=== PATIENT | female | born 1965 | race African-American/Black ===

== ENCOUNTER 2018-01-27 19:44 | Emergency (ER) | payer OTHER ==
[~2018-01-27] VITALS: Ht 175.3 cm; Wt 68.0 kg
[2018-01-27] MEDS ORDERED: Acetaminophen 500mg (ES) tab ORAL ONE (20:30)
--- NOTE | 2018-01-27 21:28 | Emergency Room Report ---
History of Present Illness General Chief Complaint: General Complaint Source: Patient (Precious Adams) Present Illness HPI 52-year-old female presents emergency department complaining of 8 out of 10 in severity generalized body aches the most appreciably abdominal pain 2 days. Patient denies fevers or chills she reports some nausea denies vomiting denies constipation or diarrhea she denies blood in the stool or black tarry stools. Patient denies trauma or fall. Denies numbness tingling or loss of sensation or gross motor movements of the extremities, incontinence of bowel or bladder. Denies CP, Palpitations, LOC, AMS, dizziness, Changes in Vision, weakness or a sudden severe headache. Patient denies psychiatric history despite listed psychiatric medication allergies. Patient denies SI, HI, auditory or visual hallucinations. Patient denies drug use. (Precious Adams) Allergies: Coded Allergies: QUETIAPINE (Verified Allergy, Unknown, 01/27/18) TRAZODONE (Verified Allergy, Unknown, 01/27/18) Patient History Past Medical History: see triage record Past Surgical History: none Pertinent Family History: none Last Menstrual Period: n/a Now: No Immunizations: UTD Reviewed Nursing Documentation: PMH: Agreed; PSxH: Agreed (Precious Adams) Nursing Documentation-PMH Past Medical History: No Stated History (Precious Adams) Review of Systems All Other Systems: negative except mentioned in HPI (Precious Adams) Physical Exam Vital Signs Date Time Temp Pulse Resp B/P (MAP) Pulse Ox O2 Delivery O2 Flow Rate FiO2 01/27/18 19:54 97.6 82 16 138/92 99 Room Air 97.5 Sp02 EP Interpretation: reviewed, normal General Appearance: no apparent distress, alert, GCS 15, non-toxic Head: normocephalic, atraumatic Eyes: bilateral eye normal inspection, bilateral eye PERRL ENT: hearing grossly normal, normal voice Neck: full range of motion Respiratory: lungs clear, normal breath sounds, no wheezing, speaking full sentences Cardiovascular #1: regular rate, rhythm Gastrointestinal: normal bowel sounds, non tender, soft Genitourinary: normal inspection, no CVA tenderness Musculoskeletal: back normal, gait/station normal, normal range of motion, non- tender Neurologic: alert, oriented x3, responsive, motor strength/tone normal, sensory intact, normal gait, speech normal, grossly normal Psychiatric: judgement/insight normal Skin: normal color, no rash, warm/dry, well hydrated (Precious Adams) Medical Decision Making PA Attestation Dr. Sánchez is my supervising Physician whom patient management has been discussed with. (Precious Adams) Diagnostic Impression: Primary Impression: Polysubstance abuse ER Course 52-year-old female presents emergency department complaining of 8 out of 10 in severity generalized body aches the most appreciably abdominal pain 2 days. Patient denies fevers or chills she reports some nausea denies vomiting denies constipation or diarrhea she denies blood in the stool or black tarry stools. Patient denies trauma or fall. Denies numbness tingling or loss of sensation or gross motor movements of the extremities, incontinence of bowel or bladder. Denies CP, Palpitations, LOC, AMS, dizziness, Changes in Vision, weakness or a sudden severe headache. Patient denies psychiatric history despite listed psychiatric medication allergies. Patient denies SI, HI, auditory or visual hallucinations. Patient denies drug use. Ddx considered but are not limited to UTI, muscle spasms, drug use, psychiatric symptom exacerbation. Vital signs: are WNL, pt. is afebrile H&PE are most consistent with nontoxic patient in no acute distress abdominal exam is benign I do not suspect acute determine with this patient's current presentation. ORDERS: -UA: Pending - UDS: Pending ED INTERVENTIONS: -Tylenol PO DISCHARGE: At this time pt. is signed out to Dr. Weinstein awaiting lab results and final disposition. (Precious Adams) ER Course Patient signout to me. She presents with chief complaint of body pain. She appeared to be very comfortable here. She said she is want to go to sleep. She had to be encouraged to give a urine sample. Urine drug screen positive for multiple drugs. No evidence of infection. No evidence of an acute abdomen. We'll discharge home. No criteria for 5150. (ISAURA WEINSTEIN M.D.) Last Vital Signs Date Time Temp Pulse Resp B/P (MAP) Pulse Ox O2 Delivery O2 Flow Rate FiO2 01/27/18 19:54 97.6 82 16 138/92 99 Room Air 97.5 (Precious Adams) Status: improved (ISAURA WEINSTEIN M.D.) Disposition: HOME, SELF-CARE Condition: Stable Signed Out To: Dr. Weinstein (Precious Adams) Additional Instructions: Stop using drugs. Follow-up with rehabilitation. Follow-up your doctor in 7 days. Return if worse. Precious Adams Jan 27, 2018 21:28 ISAURA WEINSTEIN M.D. Jan 27, 2018 22:21
[2018-01-27 21:37] LABS: APPEARANCE,URINE CLEAR; BILIRUBIN, URINE NEGATIVE (NEGATIVE); GLUCOSE, URINE (UA) NEGATIVE (NEGATIVE); KETONES,URINE 1+ (NEGATIVE); LEUKOCYTE ESTERASE ,URINE 2+ (NEGATIVE); NITRITE,URINE NEGATIVE (NEGATIVE); PH,URINE 6 (4.5-8.0); PROTEIN,URINE 1+ (NEGATIVE); UROBILINOGEN,URINE 4 MG/DL (0.0-1.0)
[2018-01-27 21:38] LABS: COLOR,URINE YELLOW
[2018-01-27 21:57] VITALS: BP 138/92
[2018-01-27 22:40] VITALS: BP 138/92
== END 2018-01-27 22:40 | disposition home or self-care (01) ==
LOC: EDBD 19:44 → EMR 20:09
DX: F19.10 Other psychoactive substance abuse, uncomplicated (principal); Z88.6 Allergy status to analgesic agent
CPT/HCPCS: 80307; 81003; 99284

== ENCOUNTER 2018-01-28 01:34 | Emergency (ER) | payer OTHER ==
[~2018-01-28] VITALS: Ht 175.3 cm; Wt 68.0 kg
[2018-01-28 01:55] VITALS: BP 138/92
--- NOTE | 2018-01-28 02:25 | Emergency Room Report ---
History of Present Illness General Chief Complaint: Behavioral Complaint Source: Patient Present Illness HPI This is a 52-year-old female whom I saw earlier this evening. She came in initially with chief complaint of generalized body pain. Drug screen was positive for marijuana, cocaine, and amphetamine. Patient was discharged. She went to the nearby piece of place and later control inspector 911 telling them that she was suicidal. Police brought her in as a 5150 for danger to self another. Patient has no particular plan. Said she is hearing voices. Has been off of her psychiatric medication for over a year. She was incarcerated during that time and was recently released about a couple weeks ago. She has no particular plan. Allergies: Coded Allergies: QUETIAPINE (Verified Allergy, Unknown, 01/27/18) TRAZODONE (Verified Allergy, Unknown, 01/27/18) Patient History Past Medical History: see triage record, old chart reviewed, schizophrenia Past Surgical History: other Family History: none Social History: tobacco use, ETOH, drug use, single Now: No Immunizations: other Reviewed Nursing Documentation: PMH: Agreed; PSxH: Agreed Nursing Documentation-PMH Past Medical History: No History, Except For History Of Psychiatric Problem: Yes - Schizophrenia Review of Systems ENT: Denies: sore throat Cardiovascular: Denies: chest pain, palpitations Gastrointestinal/Abdominal: Denies: nausea, vomiting, diarrhea Musculoskeletal: Denies: back problems Skin: Denies: rash Neurological: Denies: CROOKS, seizures All Other Systems: negative except mentioned in HPI Physical Exam Vital Signs Date Time Temp Pulse Resp B/P (MAP) Pulse Ox O2 Delivery O2 Flow Rate FiO2 01/28/18 01:35 97.8 84 15 138/92 99 Room Air 97.9 vitals normal Sp02 EP Interpretation: reviewed, normal General Appearance: alert/responsive, no apparent distress, non-toxic Head: normocephalic, atraumatic Eyes: PERRL, EOMI ENT: oropharynx normal Neck: supple/symm/no masses Respiratory: effort normal, no rhonchi, no wheezing Cardiovascular: no murmur, gallop, rub Gastrointestinal: non-tender, no mass, non-distended, no rebound/guarding, normal bowel sounds Musculoskeletal: gait & station normal Neurologic: oriented x3, sensory intact, motor strength/tone normal Skin: no rash, normal palpation Medical Decision Making Diagnostic Impression: Primary Impression: Psychosis Qualified Codes: F23 - Brief psychotic disorder Additional Impressions: Suicidal ideation Polysubstance abuse ER Course Patient presents with psychosis and suicidal mediation. I suspect this is probably malingering she has a place to stay. She is currently on a hold. We' ll check labs to make sure she is is medically stable. Afterward she will be clear for psychiatric evaluation. Patient slept in the night without any problem. Labs unremarkable. Drug screen positive for marijuana, cocaine, and methamphetamine. Patient is medically clear for psychiatric evaluation. Lab Results Impression labs normal Last Vital Signs Date Time Temp Pulse Resp B/P (MAP) Pulse Ox O2 Delivery O2 Flow Rate FiO2 01/28/18 01:35 97.8 84 15 138/92 99 Room Air 97.9 Status: improved Disposition: XFER TO PSYCH HOSP/UNIT Condition: Stable Referrals: [facility],REFERRING (PCP) ISAURA FOSTER M.D. Jan 28, 2018 02:25
[2018-01-28 02:29] LABS: BASOPHILS % (AUTO) 0.9 % (0.0-2.0); EOSINOPHILS % (AUTO) 1.7 % (0.0-3.0); HEMATOCRIT 38.7 % (37.0-47.0); LYMPHOCYTES % (AUTO) 22.2 % (20.0-45.0); MEAN CORPUSCULAR VOLUME 97 FL (80-99); MONOCYTES % (AUTO) 8.1 % (1.0-10.0); NEUTROPHILS % (AUTO) 67.2 % (45.0-75.0); PLATELET COUNT 345 K/UL (150-450); RED BLOOD COUNT 4.01 M/UL (4.20-5.40)
[2018-01-28 02:45] LABS: ALANINE AMINOTRANSFERASE 58 U/L (12-78); ALBUMIN 3.5 G/DL (3.4-5.0); ALBUMIN/GLOBULIN RATIO 0.8 (1.0-2.7); ALKALINE PHOSPHATASE 83 U/L (46-116); ASPARTATE AMINO TRANSFERASE 36 U/L (15-37); BILIRUBIN,TOTAL 0.5 MG/DL (0.2-1.0); BLOOD UREA NITROGEN 12 mg/dL (7-18); CALCIUM 9.3 MG/DL (8.5-10.1); CARBON DIOXIDE 29 MMOL/L (21-32); CREATININE 0.9 MG/DL (0.55-1.30)
[2018-01-28 02:58] LABS: CHLORIDE 107 MMOL/L (98-107); POTASSIUM 3.7 MMOL/L (3.5-5.1); SODIUM 142 MMOL/L (136-145)
[2018-01-28 05:50] VITALS: BP 129/85
[2018-01-28 10:00] VITALS: BP 126/78
[2018-01-28 14:00] VITALS: BP 115/68
[2018-01-28 18:00] VITALS: BP 116/66
[2018-01-28 20:00] VITALS: BP 117/65
[2018-01-29 00:30] VITALS: BP 110/64
[2018-01-29 06:43] VITALS: BP 118/76
[2018-01-29 11:10] VITALS: BP 122/74
[2018-01-29 14:33] VITALS: BP 130/76
[2018-01-29 15:07] LABS: APPEARANCE,URINE CLEAR; BILIRUBIN, URINE NEGATIVE (NEGATIVE); COLOR,URINE PALE YELLOW; GLUCOSE, URINE (UA) NEGATIVE (NEGATIVE); KETONES,URINE NEGATIVE (NEGATIVE); LEUKOCYTE ESTERASE ,URINE 1+ (NEGATIVE); NITRITE,URINE NEGATIVE (NEGATIVE); PH,URINE 8 (4.5-8.0); PROTEIN,URINE NEGATIVE (NEGATIVE); UROBILINOGEN,URINE NORMAL MG/DL (0.0-1.0)
[2018-01-29 15:34] VITALS: BP 130/76
== END 2018-01-29 15:34 ==
LOC: EMR 02:03
DX: F29 Unspecified psychosis not due to a substance or known physiological condition (principal); R45.851 Suicidal ideations; F14.10 Cocaine abuse, uncomplicated; F12.10 Cannabis abuse, uncomplicated
CPT/HCPCS: 36415; 80053; 80307; 80329; 81003; 81025; 85025; 99284

== ENCOUNTER 2018-10-05 02:24 | Emergency (ER) | payer OTHER ==
[~2018-10-05] VITALS: Ht 175.3 cm; Wt 68.0 kg
[2018-10-05 02:40] VITALS: BP 136/62
--- NOTE | 2018-10-05 02:40 | NUR ---
ED Nurse Note: Patient BILLY RA 68 from [facility] c/o generalized pain for 1 week. BS 126 on scene AO4. NAD. VSS.
--- NOTE | 2018-10-05 03:00 | NUR ---
ED Nurse Note: Provided patient with sandwich and water.
[2018-10-05] MEDS ORDERED: AMOXICILLIN500 MG ORAL (03:08)
[2018-10-05] MEDS ORDERED: TYLENOL EXTRA500 MG ORAL (03:08)
[2018-10-05 03:15] VITALS: BP 136/62
[2018-10-05] MEDS ORDERED: Acetaminophen 500mg (ES) tab ORAL ONE (03:15)
--- NOTE | 2018-10-05 03:15 | NUR ---
Homeless Discharge: Patient is being discharged from medical care. Awake, alert and oriented x3. After care instructions, including referral to community resources were given. Patient verbalized understanding of After care instructions; at this time patient does not request medications, equipment or placement. Patient signed patient consent in the medical record for patient destination upon discharge. All medical devices such as IV and ID band were removed. Patient ambulated out with all personal belongings with steady gait.
--- NOTE | 2018-10-05 21:42 | Emergency Room Report ---
History of Present Illness General Chief Complaint: Pain Source: Patient Present Illness HPI 52-year-old female presents to ED for evaluation. Patient brought in by EMS complaining of bilateral leg pain and cough. States that she has pneumonia. States cough is productive with yellowish phlegm. Denies any recent fall or injury. Pain is 8 out of 10, throbbing, nonradiating. Patient states she is homeless and walks a lot. Denies any other injuries. No other aggravating relieving factors. Denies any other associated symptoms Allergies: Coded Allergies: IBUPROFEN (Verified Allergy, Unknown, 10/05/18) QUETIAPINE (Verified Allergy, Unknown, 01/27/18) TRAZODONE (Verified Allergy, Unknown, 01/27/18) Patient History Past Medical History: psych hx Past Surgical History: none Pertinent Family History: none Social History: Denies: smoking, alcohol use, drug use Last Menstrual Period: MARY Now: No Immunizations: UTD Reviewed Nursing Documentation: PMH: Agreed; PSxH: Agreed Nursing Documentation-PMH Past Medical History: No History, Except For Hx Cardiac Problems: No - edema Review of Systems All Other Systems: negative except mentioned in HPI Physical Exam Vital Signs Date Time Temp Pulse Resp B/P (MAP) Pulse Ox O2 Delivery O2 Flow Rate FiO2 10/05/18 02:31 98.8 89 14 136/62 98 Room Air Sp02 EP Interpretation: reviewed, normal General Appearance: no apparent distress, alert, GCS 15, non-toxic Head: normocephalic Eyes: bilateral eye normal inspection, bilateral eye PERRL ENT: normal ENT inspection Neck: normal inspection Respiratory: chest non-tender, lungs clear, normal breath sounds, speaking full sentences Cardiovascular #1: regular rate, rhythm, no edema Gastrointestinal: normal inspection Rectal: normal rectal tone Genitourinary: no CVA tenderness Musculoskeletal: normal inspection Neurologic: alert, oriented x3, responsive, motor strength/tone normal, sensory intact, speech normal Psychiatric: anxious Skin: normal inspection Lymphatic: normal inspection Medical Decision Making Diagnostic Impression: Primary Impression: Atypical pneumonia ER Course Hospital Course 52-year-old female presents ED complaining of leg pain, cough. Differential diagnoses include: URI, pharyngitis, otitis media, asthma Clinical course Patient placed on stretcher. After initial history, physical exam reveals a female in no acute distress. Bilateral TM unremarkable. No pharyngeal erythema. No tonsillar exudates. No lymphadenopathy. lungs clear. abdomen soft. given age and comorbidities concern for atypical pneumonia. given tylenol for pain We will discharge with antibiotics. I'll provide referrals. Homeless checklist repleted. Prison referrals provided Diagnosis - atypical pneumonia Stable and discharged alf with Rx amoxicillin, tylenol. Instructed to followup with PMD. Return to ED if symptoms recur or worsen Last Vital Signs Date Time Temp Pulse Resp B/P (MAP) Pulse Ox O2 Delivery O2 Flow Rate FiO2 10/05/18 03:15 98.8 106 14 136/62 98 Room Air Status: improved Disposition: HOME, SELF-CARE Condition: Stable Scripts Acetaminophen* (TYLENOL EXTRA STRENGTH*) 500 Mg Tablet 500 MG ORAL Q8H PRN for Prn Headache/Temp > 101, #30 TAB 0 Refills Prov: Edgar Yanes MD 10/05/18 Amoxicillin* (AMOXIL*) 500 Mg Capsule 500 MG ORAL THREE TIMES A DAY, #21 CAP Prov: Edgar Yanes MD 10/05/18 Referrals: NOT CHOSEN [facility]/,REFERRING H [facility] Patient Instructions: Community-Acquired Pneumonia, Adult, [id number] Edgar Yanes MD Oct 05, 2018 21:42
== END 2018-10-05 03:15 | disposition home or self-care (01) ==
LOC: EDBD 02:24 → EDUNIT# 02:24 → EMR 03:08
DX: J18.9 Pneumonia, unspecified organism (principal); M79.605 Pain in left leg; M79.604 Pain in right leg; Z88.6 Allergy status to analgesic agent; Z88.8 Allergy status to other drugs, medicaments and biological substances
CPT/HCPCS: 99282

== ENCOUNTER 2018-10-14 05:31 | Inpatient (IN) | payer OTHER ==
[2018-10-14] VITALS (12 sets, daily range): BP systolic 109–144; BP diastolic 70–92
[~2018-10-14] VITALS: Ht 175.3 cm; Wt 63.5 kg
[~2018-10-14 05:31] MED LIST: AMOXICILLIN500 MG ORAL; TYLENOL EXTRA500 MG ORAL
[2018-10-14] MEDS ORDERED: LATUDA20 MG PO (05:36)
--- NOTE | 2018-10-14 05:54 | Emergency Room Report ---
History of Present Illness General Chief Complaint: Upper Respiratory Illness Source: Patient, EMS Present Illness HPI Patient presents with shaking chills and a productive cough. She believes she has pneumonia. She was seen October 05 and diagnosed with atypical pneumonia. She was discharged to be treated as an outpatient. She was given prescription for amoxicillin but apparently this was not filled. She denies using an inhaler at this time. She is felt weak. There is no vomiting or diarrhea. She admits to drinking alcohol. She denies doing drugs recently. Patient is a previous psychiatric history. She denies taking medication at this time. She denies suicidal homicidal ideation. Allergies: Coded Allergies: IBUPROFEN (Verified Allergy, Unknown, 10/05/18) QUETIAPINE (Verified Allergy, Unknown, 01/27/18) TRAZODONE (Verified Allergy, Unknown, 01/27/18) Patient History Past Medical History: see triage record, psych hx Social History: Reports: smoking, alcohol use, drug use Social History Narrative patient is in a stable living place however her boyfriend just Reviewed Nursing Documentation: PMH: Agreed; PSxH: Agreed Nursing Documentation-PMH Past Medical History: No History, Except For Hx Cardiac Problems: No - edema History Of Psychiatric Problem: Yes - schizophrenia Review of Systems All Other Systems: negative except mentioned in HPI Physical Exam Vital Signs Date Time Temp Pulse Resp B/P (MAP) Pulse Ox O2 Delivery O2 Flow Rate FiO2 10/14/18 05:32 99.0 80 20 138/88 100 Room Air Sp02 EP Interpretation: reviewed, normal General Appearance: no apparent distress, GCS 15, thin, other - Weak and ill appearing Head: normocephalic Eyes: bilateral eye normal inspection, bilateral eye PERRL ENT: moist mucus membranes Neck: supple Respiratory: rales - Right base, wheezing, expiration Cardiovascular #1: regular rate, rhythm Cardiovascular #2: 2+ radial (R) Gastrointestinal: normal inspection, normal bowel sounds, non tender, no mass, non-distended, scaphoid Musculoskeletal: back normal, gait/station normal, normal range of motion Neurologic: alert, motor strength/tone normal, normal gait, oriented - X2 Psychiatric: no suicidal/homicidal ideation, anxious, other - See course Skin: normal inspection, warm/dry Medical Decision Making Medical: Alcohol Abuse, Other - pneumonia Behavioral: Schizophrenia Reaction to Intervention: Escalated Behavior Restraint ReassesAndre Riveraner, MD, have personally evaluated this patient. Laboratory tests have been reviewed and addressed accordingly. The patient is deemed to present a danger to themselves and/or others. This is based on the exam, history ( provided by patient) and observed or reported behavior. Attempts for non-invasive measures have been considered and/or attempted, however, have been futile. It is in the best interest of the nursing staff, the patient, and others involved in this patient's care that behavioral restraints be applied. Patient evaluation reveals the following: escalation and delusional with paranoid ideation. Diagnostic Impression: Primary Impression: Right lower lobe pneumonia Qualified Codes: J18.1 - Lobar pneumonia, unspecified organism Additional Impressions: Bronchospasm Alcohol abuse Psychosis Qualified Codes: F29 - Unspecified psychosis not due to a substance or known physiological condition Cocaine abuse ER Course Patient presents with chills and cough. I differential includes viral syndrome , pneumonia, COPD exacerbation amongst others. The patient will be evaluated with EKG, chest x-ray and labs including lactic acid. We may need to include blood cultures. Patient will be treated with breathing treatments and IV hydration and Solu-Medrol initially. CXR with infiltrate. BC and antibiotics ordered. Lactate elevated. Normal white count. Blood alcohol positive. Tox screen positive for cocaine and THC. Patient acutely decompensated. She was initially compliant with treatment but then started accusing staff of torturing her. She stated that we wanted stronger out of the emergency department. She was paranoid and refused treatment. She did not seem to comprehend the risk of her refusal. Uncertain as to what caused the change in her demeanor. Clearly patient unable to comprehend the risks of leaving the hospital as she is not in reality at this time. Initially she agreed to oral sedation. However she was paranoid and only agreed to take Benadryl. Patient started to address the emergency department in a state of agitation. She was not oriented. Security responded and the patient was placed in restraints and sedated. She has not received antibiotics prior to sedation. The workup and treatment continued after sedation was successful. Signed ou to Dr. Harper. Apparently called Dr. Kenney for admission. In addition I requested that he request psychiatric consultation from Dr. Garibay. Laboratory Tests Test 10/14/18 06:45 10/14/18 09:57 10/14/18 12:02 White Blood Count 7.9 K/UL (4.8-10.8) Red Blood Count 4.32 M/UL (4.20-5.40) Hemoglobin 12.9 G/DL (12.0-16.0) Hematocrit 40.8 % (37.0-47.0) Mean Corpuscular Volume 94 FL (80-99) Mean Corpuscular Hemoglobin 29.9 PG (27.0-31.0) Mean Corpuscular Hemoglobin Concent 31.6 G/DL (32.0-36.0) L Red Cell Distribution Width 13.4 % (11.6-14.8) Platelet Count 353 K/UL (150-450) Mean Platelet Volume 6.8 FL (6.5-10.1) Neutrophils (%) (Auto) 71.9 % (45.0-75.0) Lymphocytes (%) (Auto) 20.5 % (20.0-45.0) Monocytes (%) (Auto) 6.3 % (1.0-10.0) Eosinophils (%) (Auto) 0.4 % (0.0-3.0) Basophils (%) (Auto) 0.9 % (0.0-2.0) Prothrombin Time 10.3 SEC (9.30-11.50) Prothrombin Time INR 1.0 (0.9-1.1) PTT 31 SEC (23-33) Sodium Level 142 MMOL/L (136-145) Potassium Level 3.6 MMOL/L (3.5-5.1) Chloride Level 104 MMOL/L (98-107) Carbon Dioxide Level 29 MMOL/L (21-32) Anion Gap 9 mmol/L (5-15) Blood Urea Nitrogen 14 mg/dL (7-18) Creatinine 0.6 MG/DL (0.55-1.30) Estimate Glomerular Filtration Rate > 60 mL/min (>60) Glucose Level 67 MG/DL (74-106) L Lactic Acid Level 2.40 mmol/L (0.4-2.0) H Pending Calcium Level 9.2 MG/DL (8.5-10.1) Total Bilirubin 0.2 MG/DL (0.2-1.0) Aspartate Amino Transferase (AST) 20 U/L (15-37) Alanine Aminotransferase (ALT) 31 U/L (12-78) Alkaline Phosphatase 77 U/L (46-116) Total Creatine Kinase 194 U/L (26-308) Troponin I 0.000 ng/mL (0.000-0.056) Pro-B-Type Natriuretic Peptide 110 pg/mL (0-125) Total Protein 8.1 G/DL (6.4-8.2) Albumin 3.7 G/DL (3.4-5.0) Globulin 4.4 g/dL Albumin/Globulin Ratio 0.8 (1.0-2.7) L Serum Alcohol 86 mg/dL Urine Color Pale yellow Urine Appearance Clear Urine pH 5 (4.5-8.0) Urine Specific [place] Pool 1.015 (1.005-1.035) Urine Protein Negative (NEGATIVE) Urine Glucose (UA) Negative (NEGATIVE) Urine Ketones Negative (NEGATIVE) Urine Blood Negative (NEGATIVE) Urine Nitrite Negative (NEGATIVE) Urine Bilirubin Negative (NEGATIVE) Urine Urobilinogen Normal MG/DL (0.0-1.0) Urine Leukocyte Esterase Negative (NEGATIVE) Urine Opiates Screen Negative (NEGATIVE) Urine Barbiturates Screen Negative (NEGATIVE) Phencyclidine (PCP) Screen Negative (NEGATIVE) Urine Amphetamines Screen Negative (NEGATIVE) Urine Benzodiazepines Screen Negative (NEGATIVE) Urine Cocaine Screen Positive (NEGATIVE) H Urine Marijuana (THC) Screen Positive (NEGATIVE) H Microbiology Date/Time Source Procedure Growth Status 10/14/18 09:18 Nasal Nares Influenza Types A,B Antigen (SANTOS) - Final Complete EKG Diagnostic Results Rate: normal Rhythm: NSR ST Segments: no acute changes - Low-voltage Rhythm Strip Diag. Results EP Interpretation: yes Rhythm: NSR, no PVC's, no ectopy Chest X-Ray Diagnostic Results Chest X-Ray Diagnostic Results : Chest X-Ray Ordered: Yes # of Views/Limited/Complete: 1 View Indication: Other EP Interpretation: Yes Interpretation: no effusion, no pneumothorax, other - RML infilrate Impression: Other Electronically Signed by: Electronically signed by Andre Melendez MD Last Vital Signs Date Time Temp Pulse Resp B/P (MAP) Pulse Ox O2 Delivery O2 Flow Rate FiO2 10/14/18 10:52 98.7 92 23 114/68 100 Room Air Status: improved Disposition: ADMITTED INPATIENT Condition: Serious Andre Melendez MD Oct 14, 2018 05:54
[2018-10-14] MEDS ORDERED: Albuterol ud Inhalation HHN ONE (06:00)
[2018-10-14] MEDS ORDERED: Solu-MEDROL 125mg Inj IVP ONE (06:00)
[2018-10-14] MEDS ORDERED: Ipratropium 0.02% Inh Soln 2.5ml UD HHN ONE (06:00)
--- NOTE | 2018-10-14 06:00 | NUR ---
ED Nurse Note: RECIEVED PT ON CODY AWAKE, ALERT AND ORIENTED X 4, PT COMPLETING BREATHING TREATMENT, PT DENIES CP OR ANY PAIN, IV LINE STARTED AND LABS DRAWN AND SENT, PT ON CARDIAC MONITORING, PT IN BED RESTING QUIETLY, SHIFT REPORT GIVEN TO CATRINA LARSEN TO RESUME CARE.
[2018-10-14 07:10] LABS: BASOPHILS % (AUTO) 0.9 % (0.0-2.0); EOSINOPHILS % (AUTO) 0.4 % (0.0-3.0); HEMATOCRIT 40.8 % (37.0-47.0); HEMOGLOBIN 12.9 G/DL (12.0-16.0); LYMPHOCYTES % (AUTO) 20.5 % (20.0-45.0); MEAN CORPUSCULAR VOLUME 94 FL (80-99); MONOCYTES % (AUTO) 6.3 % (1.0-10.0); NEUTROPHILS % (AUTO) 71.9 % (45.0-75.0); PLATELET COUNT 353 K/UL (150-450); RED BLOOD COUNT 4.32 M/UL (4.20-5.40); RED CELL DISTRIBUTION WIDTH 13.4 % (11.6-14.8); WHITE BLOOD COUNT 7.9 K/UL (4.8-10.8)
--- NOTE | 2018-10-14 07:30 | NUR ---
ED Nurse Note: REPORT RECEIVED FROM CATRINA WHITEHEAD.
[2018-10-14 07:31] LABS: ALANINE AMINOTRANSFERASE 31 U/L (12-78); ALBUMIN 3.7 G/DL (3.4-5.0); ALBUMIN/GLOBULIN RATIO 0.8 (1.0-2.7); ALKALINE PHOSPHATASE 77 U/L (46-116); ANION GAP 9 mmol/L (5-15); ASPARTATE AMINO TRANSFERASE 20 U/L (15-37); BILIRUBIN,TOTAL 0.2 MG/DL (0.2-1.0); BLOOD UREA NITROGEN 14 mg/dL (7-18); CALCIUM 9.2 MG/DL (8.5-10.1); CARBON DIOXIDE 29 MMOL/L (21-32); CHLORIDE 104 MMOL/L (98-107); CREATINE KINASE 194 U/L (26-308); CREATININE 0.6 MG/DL (0.55-1.30); POTASSIUM 3.6 MMOL/L (3.5-5.1); SODIUM 142 MMOL/L (136-145)
[2018-10-14] MEDS ORDERED: Piperacillin/Tazobactam 3.375 GM in NS 110 ML IVPB ONE (07:45)
--- NOTE | 2018-10-14 07:50 | NUR ---
ED Nurse Note: PT CRYING AND SCREAMING "STOP TORTURING ME!" REPEATEDLY AND BEING RESISTIVE TO CARE. TWO OTHER RN'S AT BEDSIDE WITNESSING THAT NOTHING IS BEING DONE TO THE PT. DR. ANGUIANO MADE AWARE.
--- NOTE | 2018-10-14 07:51 | Diagnostic Imaging Report ---
EXAM: XR Chest, 1 View. CLINICAL HISTORY: COUGH TECHNIQUE: Frontal view of the chest. COMPARISON: No relevant prior studies available. FINDINGS: Lungs: Suspected airspace consolidation versus atelectasis in the right lung base. Lungs are otherwise well inflated and aerated. Pleural spaces: No pneumothorax. Heart: Mild cardiomegaly. Mediastinum: No mediastinal widening or shift. Bones: Unremarkable. No acute fracture. IMPRESSION: Atelectasis versus airspace consolidation secondary to pneumonia seen within the right lung base.
[2018-10-14] MEDS: LORazepam 1mg tab ORAL ONE ×2 (08:00→08:25)
--- NOTE | 2018-10-14 08:30 | NUR ---
ED Nurse Note: PT REFUSED THE ATIVAN AND THE HALDOL WHILE DR. ANGUIANO IS AT THE BEDSIDE
--- NOTE | 2018-10-14 08:35 | NUR ---
ED Nurse Note: DR. ANGUIANO AT BEDSIDE BUT PT STILL AGITATED AND COMBATIVE. PT CONFUSED AND COMBATIVE AND CONTINUING TO YELL AT STAFF. SECURITY CALLED FOR ASSISTANCE.
[2018-10-14] MEDS ORDERED: Haloperidol 5mg/ml Inj IM ONE (08:45)
[2018-10-14] MEDS ORDERED: LORazepam Inj 2mg/ml 1ml IM ONE (08:45)
--- NOTE | 2018-10-14 08:47 | NUR ---
ED Nurse Note: PT CONTINUES TO BE RESISTIVE TO CARE AND COMBATIVE TOWARDS STAFF. ORDER FOR BEHAVIORAL RESTRAINTS RECEIVED AND PLACED ON PT. PULSES, SENSATION, CIRCULATION, AND SKIN INTACT. IM MEDICATIONS ADMINISTERED PER DR. ANGUIANO ORDERS.
[2018-10-14 10:11] LABS: APPEARANCE,URINE CLEAR; BILIRUBIN, URINE NEGATIVE (NEGATIVE); COLOR,URINE PALE YELLOW; GLUCOSE, URINE (UA) NEGATIVE (NEGATIVE); KETONES,URINE NEGATIVE (NEGATIVE); LEUKOCYTE ESTERASE ,URINE NEGATIVE (NEGATIVE); NITRITE,URINE NEGATIVE (NEGATIVE); PH,URINE 5 (4.5-8.0); PROTEIN,URINE NEGATIVE (NEGATIVE); UROBILINOGEN,URINE NORMAL MG/DL (0.0-1.0)
--- NOTE | 2018-10-14 10:35 | NUR ---
ED Nurse Note: [facility] CALLED FOR PT TRANSFER. RN ON ANOTHER CALL. WILL CALL BACK IN 10 MINUTES.
--- NOTE | 2018-10-14 10:54 | NUR ---
ED Nurse Note: [facility] CALLED FOR PT TRANSFER. REPORT GIVEN TO CATRINA DORAN. PT TAKEN UP TO [facility] VIA GURNEY WITH IV ABX AND ALL BELONGINGS ACCOMPANIED BY EMT. VSS.
--- NOTE | 2018-10-14 11:20 | NUR ---
NURSE NOTES: Patient arrived on the floor. Left message for MD Kenney, awaiting call back.
--- NOTE | 2018-10-14 11:22 | NUR ---
NURSE NOTES: MD Kenney stated to call MD Pope for orders. Left message and awaiting call back.
[2018-10-14] MEDS ORDERED: Promethazine/Codeine 5ml UD ORAL PRN (12:00)
[2018-10-14] MEDS ORDERED: Solu-MEDROL 125mg Inj IV SCH (12:00)
[2018-10-14] MEDS ORDERED: Albuterol/Ipratropium 3ml neb HHN PRN (12:00)
[2018-10-14] MEDS ORDERED: Nitroglycerin Subl 0.4mg tab SL PRN (12:00)
[2018-10-14] MEDS ORDERED: Morphine Sulfate 2mg/ml Inj(IV/IM USE ONLY) IVP PRN (12:00)
[2018-10-14] MEDS ORDERED: Zosyn 3.375gm q8h **Extended infusion IVPB SCH ×2 (14:00)
[2018-10-14] MEDS ORDERED: Piperacillin/Tazobactam 2.25 GM in D5W 55 ML IV SCH (14:00)
--- NOTE | 2018-10-14 16:21 | Consultation ---
Consult Note Consult Note # [id number] Abel Amaya MD Oct 14, 2018 16:21
[2018-10-14] MEDS: cefTRIAXone 2 GM in D5W 55 ML IVPB SCH (18:02)
[2018-10-14] MEDS: Azithromycin 500 MG in D5W 275 ML IV SCH (18:46)
--- NOTE | 2018-10-14 19:20 | NUR ---
HAND-OFF: Report given to CATRINA Ram.
[2018-10-14] MEDS: Heparin 5000 units/ml inj SUBQ SCH (21:00)
[2018-10-14] MEDS: Theophylline ER 100mg ORAL SCH (21:40)
[2018-10-15] VITALS: BP 127/95
--- NOTE | 2018-10-15 00:45 | Consultation ---
DATE OF CONSULTATION: 10/14/2018 CONSULTING PHYSICIAN: Abel Amaya M.D. REFERRING PHYSICIAN: Cameron Kenney D.O. REASON FOR CONSULTATION: Evaluation of the patient for pneumonia and antibiotic management. HISTORY OF PRESENT ILLNESS: The patient is a 52-year-old female with no significant past medical history, came to the hospital with chief complaint of productive cough. She has runny nose, admitted with impression of pneumonia. Infectious Disease consultation has been requested for further evaluation of the patient and antibiotic management. PAST MEDICAL HISTORY: Unremarkable. PAST SURGICAL HISTORY: Unremarkable. ALLERGIES: No allergies to antibiotics. MEDICATIONS: Currently on Zosyn. FAMILY HISTORY: Noncontributory. SOCIAL HISTORY: Significant for smoking marijuana and cigarettes. No history of alcohol or intravenous drug abuse. REVIEW OF SYSTEMS: A 10-point review of systems was done and except what was mentioned above has been negative. No history of abdominal pain, diarrhea, nausea, vomiting, dysuria. PHYSICAL EXAMINATION: VITAL SIGNS: Temperature 98.7, pulse 86, respiratory rate 18, and blood pressure 114/68. HEENT: No pale conjunctivae. No scleral icterus. NECK: No lymphadenopathy. CHEST: Clear. HEART: S1 and S2. ABDOMEN: Soft, nontender. EXTREMITIES: No cyanosis at this time. NEUROLOGIC: Awake. LABORATORY AND DIAGNOSTIC DATA: Labs, white blood cells 7.9, hemoglobin 12, platelets 353. BUN 14, creatinine 0.6. ALT, AST, and alkaline phosphatase unremarkable. Chest x-ray showed atelectasis versus consolidation in the right lung base. ASSESSMENT: The patient is a 52-year-old female with: 1. Bronchitis/community-acquired pneumonia. 2. Afebrile. 3. Normal white blood cells. 4. Mild anemia. PLAN: 1. We will continue the patient on Zithromax and Rocephin. 2. Monitor CBC and BMP. 3. Monitor cultures (blood, sputum). 4. Monitor chest x-ray. 5. Based on the patient's clinical course and laboratories, we will do further recommendations. Thank you, Dr. Cameron Kenney, for allowing me to participate in the care of this patient. I will follow the patient with you during this hospitalization. Abel Amaya M.D. DR: LATRICE JOB#: [id number] CC:
[2018-10-15 04:00] VITALS: BP 117/84
--- NOTE | 2018-10-15 06:00 | NUR ---
NURSE NOTES: PT.AWAKE AND ORIENTED,AMBULATING W/ UNSTEADY GAIT INSTRUCTED TO CALL FOR ANY ASSISTANCE CALL LIGHT WITHIN REACH @ ALL TIMES.VERBALIZE UNDERSTANDING.
--- NOTE | 2018-10-15 07:30 | NUR ---
HAND-OFF: Report given to SANIA FRITZ.
[2018-10-15 08:00] VITALS: BP 127/77
[2018-10-15] MEDS: Theophylline ER 100mg ORAL SCH ×2 (09:27→20:33)
[2018-10-15] MEDS: Heparin 5000 units/ml inj SUBQ SCH ×2 (09:32→20:35)
--- NOTE | 2018-10-15 10:15 | History and Physical Report ---
DATE OF ADMISSION: 10/14/2018 TIME SEEN: 8 a.m. CONSULTANTS: 1. Cherelle Fowler M.D. 2. Abel Amaya M.D. 3. Eliot Pope M.D. CHIEF COMPLAINT: Shortness of breath, right lower lobe pneumonia, and psych history. BRIEF HISTORY: This is a 52-year-old male, who lives at home, presents with shortness of breath x2 days, getting worse, came to [facility], diagnosed with right lower lobe pneumonia and shortness of breath and history of psych and admitted to medical floor for further treatment. Currently, calm in bed, slight short of breath. No complaint otherwise. REVIEW OF SYSTEMS: No chest pain. Slight shortness of breath. No nausea, vomiting, or diarrhea. PAST MEDICAL HISTORY: Psychosis. PAST SURGICAL HISTORY: None. MEDICATIONS: Include heparin, temazepam, theophylline, azithromycin, ceftriaxone, albuterol, lorazepam, methylprednisolone, morphine, nitroglycerin, and Promethazine. ALLERGIES: Ibuprofen, quetiapine, and trazodone. SOCIAL HISTORY: Positive smoke. Positive alcohol. No intravenous drug abuse. FAMILY HISTORY: Noncontributory. PHYSICAL EXAMINATION: GENERAL: Calm in bed, oriented x2. Slight shortness of breath. VITAL SIGNS: Temperature is 96 degrees, pulse 54, respirations 18, and blood pressure 117/84. CARDIOVASCULAR: No murmur. LUNGS: Poor air exchange with slight wheeze bilaterally. ABDOMEN: Bowel sounds positive. Nontender. Nondistended. EXTREMITIES: No cyanosis or edema. NEUROLOGIC: The patient moves all extremities, slightly weak. LABORATORY AND DIAGNOSTIC DATA: Labs at this time show CBC is normal. BMP show glucose 67. Lactic acid 2.4. Troponin 0.00, otherwise BMP is normal. INR is 1.0 and PTT is 31. Urine tox positive for cocaine and marijuana. Urinalysis is negative. ASSESSMENT: 1. Right lower lobe pneumonia. 2. Shortness of breath. 3. Psych history. 4. Drug abuse. PLAN: 1. Detox. 2. O2 and pulmonary treatment. 3. Antibiotics per Infectious Disease. 4. Psychiatry and dietary followup, PT. 5. CBC and BMP in the morning. Cameron Kenney, D.O. DR: HOLLY JOB#: [id number] CC:
[2018-10-15] MEDS ORDERED: NS 275ml ONE (11:32)
[2018-10-15] MEDS ORDERED: Tubing IV Secondary IV ONE (11:32)
[2018-10-15 12:00] VITALS: BP 125/81
--- NOTE | 2018-10-15 15:35 | NUR ---
CASE MANAGEMENT: INITIAL REVIEW 52 YO F BILLY FROM HOME CC: PNA PMHx: EDEMA SCHIZOPHRENIA. SI:PNA. T 99 HR 80 RR 20 B/P 138/88 SATS 100% ON RA GLU 67 LACTIC ACID 2.4 U TOX (+COCAINE AND THC) IS: DUO NEB HHN X1 SOLU MEDROL IV X1 NS BOLUS X1 LEVAQUIN IV X1 ZOSYN IV X1 HALDOL PO X1 BENADRYL PO X1 ATIVAN PO X1 PATIENT ADMITTED TO MED/SURG 10/14/2018 @ 1011 DCP: PATIENT TO BE DISCHARGED TO HOME ONCE MEDICALLY CLEARED. PLAN OF CARE: ID CONSULT PT EVAL Addendum: 10/16/18 at 2037 by Yoli Anaya CM INTERQUAL MET
[2018-10-15 16:00] VITALS: BP 118/67
--- NOTE | 2018-10-15 16:08 | Consultation ---
History of Present Illness General Date patient seen: Oct 15, 2018 Chief Complaint: Upper Respiratory Illness Present Illness HPI 52 year old female with hx of smoking presented to ER with shaking chills and a productive cough. She believes she has pneumonia. Her CXR showed RLL infiltrate, she is admitted for further management. Allergies: Coded Allergies: IBUPROFEN (Verified Allergy, Unknown, 10/05/18) QUETIAPINE (Verified Allergy, Unknown, 01/27/18) TRAZODONE (Verified Allergy, Unknown, 01/27/18) Medication History Scheduled Amoxicillin* (Amoxil*), 500 MG ORAL THREE TIMES A DAY Scheduled PRN Acetaminophen* (Tylenol Extra Strength*), 500 MG ORAL Q8H PRN for Prn Headache/ Temp > 101 Miscellaneous Medications Lurasidone Hcl (Latuda), 20 MG PO, (Reported) Patient History Healthcare decision maker N Resuscitation status Full Code Advanced Directive on File Past Medical/Surgical History Past Medical/Surgical History: (1) Cocaine abuse (2) Alcohol abuse Review of Systems All Other Systems: negative except mentioned in HPI Physical Exam General Appearance: WD/WN, no apparent distress Lines, tubes and drains: peripheral HEENT: normocephalic, anicteric Neck: non-tender, supple Respiratory/Chest: chest wall non-tender, lungs clear Breasts: no masses Cardiovascular/Chest: normal rate Abdomen: normal bowel sounds, non tender Genitourinary/Rectal: normal genital exam Extremities: normal range of motion Last 24 Hour Vital Signs Date Time Temp Pulse Resp B/P (MAP) Pulse Ox O2 Delivery O2 Flow Rate FiO2 10/15/18 12:00 97.6 61 16 125/81 (96) 99 10/15/18 09:00 Room Air 10/15/18 08:00 97.7 68 18 127/77 (94) 98 10/15/18 04:00 96.7 54 18 117/84 (95) 98 10/15/18 00:00 98.1 60 18 127/95 (106) 97 10/14/18 22:35 97 Room Air 10/14/18 21:00 Room Air 10/14/18 20:00 97.9 91 18 125/75 (92) 97 Intake and Output 10/14/18 10/15/18 19:00 07:00 Intake Total 1165 ml Output Total 1000 ml Balance 165 ml Intake IV Total 1165 ml Output Urine Total 1000 ml # Voids 3 Height (Feet): 5 Height (Inches): 9.00 Weight (Pounds): 140 Medications Current Medications Medications (Trade) Dose Ordered Sig/Mariann Route PRN Reason Start Time Stop Time Status Last Admin Dose Admin Albuterol/ Ipratropium (Albuterol/ Ipratropium) 3 ml Q4H PRN HHN dyspnea 10/14/18 12:00 10/19/18 11:59 Azithromycin 500 mg/Dextrose 275 ml @ 275 mls/hr Q24HRS IV 10/14/18 18:00 10/20/18 18:59 10/14/18 18:46 Ceftriaxone Sodium 2 gm/ Dextrose 55 ml @ 110 mls/hr Q24H IVPB 10/14/18 18:00 10/21/18 17:59 10/14/18 18:02 Dextrose (Dextrose 50%) 25 ml Q30M PRN IV Hypoglycemia 10/14/18 12:00 11/13/18 11:59 Dextrose (Dextrose 50%) 50 ml Q30M PRN IV Hypoglycemia 10/14/18 12:00 11/13/18 11:59 Heparin Sodium (Porcine) (Heparin 5000 units/ml) 5,000 units EVERY 12 HOURS SUBQ 10/14/18 21:00 11/13/18 20:59 10/15/18 09:32 Lorazepam (Ativan 2mg/ml 1ml) 0.5 mg Q4H PRN IV For Anxiety 10/14/18 12:00 10/21/18 11:59 Morphine Sulfate (Morphine Sulfate) 2 mg Q4H PRN IVP Severe Pain (Pain Scale 7-10) 10/14/18 12:00 10/21/18 11:59 Nitroglycerin (Ntg) 0.4 mg Q5MIN X 3 DOSES PRN SL Prn Chest Pain 10/14/18 12:00 11/13/18 11:59 Promethazine HCl/ Codeine (Phenergan with Codeine) 5 ml Q6H PRN ORAL cough 10/14/18 12:00 11/13/18 11:59 Temazepam (Restoril) 15 mg HSPRN PRN ORAL Insomnia 10/14/18 21:00 10/21/18 20:59 Theophylline (John-Dur) 100 mg EVERY 12 HOURS ORAL 10/14/18 21:00 11/13/18 20:59 10/15/18 09:27 Assessment/Plan Problem List: (1) Right lower lobe pneumonia ICD Codes: J18.1 - Lobar pneumonia, unspecified organism SNOMED: 691291678 Qualifiers: Qualified Codes: J18.1 - Lobar pneumonia, unspecified organism (2) Cocaine abuse ICD Codes: F14.10 - Cocaine abuse, uncomplicated SNOMED: 49447051 Assessment/Plan respiratory treatment iv abx check sputum antitussives. Eliot Pope MD Oct 15, 2018 16:08
[2018-10-15] MEDS: LORazepam Inj 2mg/ml 1ml IV PRN (16:27)
[2018-10-15] MEDS: cefTRIAXone 2 GM in D5W 55 ML IVPB SCH (17:18)
[2018-10-15] MEDS: Azithromycin 500 MG in D5W 275 ML IV SCH (17:55)
--- NOTE | 2018-10-15 19:21 | NUR ---
HAND-OFF: Report given to CATRINA Bullock.
--- NOTE | 2018-10-15 19:21 | NUR ---
NURSE NOTES: Received patient on bed awake, no s/s of any distress, denies any pain as of this time. IV line patent and intact, Bed in low position and locked, call light within reach, will continue to monitor.
[2018-10-15 20:00] VITALS: BP 113/76
[2018-10-16] VITALS: BP 117/73
[2018-10-16] MEDS: LORazepam Inj 2mg/ml 1ml IV PRN (02:02)
[2018-10-16 04:00] VITALS: BP 116/63
[2018-10-16 08:00] VITALS: BP 123/72
[2018-10-16] MEDS: Theophylline ER 100mg ORAL SCH (08:41)
[2018-10-16] MEDS: Heparin 5000 units/ml inj SUBQ SCH (08:42)
[2018-10-16 08:48] LABS: EOSINOPHILS % (AUTO) 0.2 % (0.0-3.0); HEMATOCRIT 35.2 % (37.0-47.0); HEMOGLOBIN 11.2 G/DL (12.0-16.0); LYMPHOCYTES % (AUTO) 23.3 % (20.0-45.0); MEAN CORPUSCULAR VOLUME 95 FL (80-99); MONOCYTES % (AUTO) 4.4 % (1.0-10.0); NEUTROPHILS % (AUTO) 71.1 % (45.0-75.0); PLATELET COUNT 337 K/UL (150-450); RED CELL DISTRIBUTION WIDTH 13.2 % (11.6-14.8); WHITE BLOOD COUNT 10.9 K/UL (4.8-10.8)
[2018-10-16 08:59] LABS: ANION GAP 7 mmol/L (5-15); BLOOD UREA NITROGEN 18 mg/dL (7-18); CALCIUM 9.5 MG/DL (8.5-10.1); CARBON DIOXIDE 29 MMOL/L (21-32); CHLORIDE 104 MMOL/L (98-107); CREATININE 0.7 MG/DL (0.55-1.30); POTASSIUM 4.1 MMOL/L (3.5-5.1); SODIUM 140 MMOL/L (136-145)
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
--- NOTE | 2018-10-18 01:30 | Cardiology Report ---
APPROVED REPORT EKG Measurement Heart [id number] Normal sinus rhythm with sinus arrhythmia Low voltage QRS Possible Anteroseptal infarct, age undetermined Abnormal ECG
--- NOTE | 2018-10-18 12:35 | NUR ---
*-* INSURANCE *-* ALL CLINICALS, REVIEWS AND INTERQUAL HAVE BEEN FAXED TO: JOHN MONTOYA; [place] P- [phone] X [facility] F- [phone]..........REVIEW/CLINICAL
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
== END 2018-10-16 09:40 | disposition left against medical advice (07) | DRG 139 ==
LOC: EDUNIT# 05:31 → EDBD 05:31 → EMR 09:09 → EDBEDREQ 09:21 → 4E 10:11 → EDBEDREQ 10:28 → 4E 10:50
DX: J18.9 Pneumonia, unspecified organism (principal); F20.9 Schizophrenia, unspecified; J98.01 Acute bronchospasm; F14.10 Cocaine abuse, uncomplicated; F10.10 Alcohol abuse, uncomplicated; Z88.6 Allergy status to analgesic agent; Z88.8 Allergy status to other drugs, medicaments and biological substances
CPT/HCPCS: 36415; 71045; 80048; 80053; 80307; 80329; 81003; 82550; 83605; 83880; 84484; 85025; 85610; 85730; 86710; 87040; 93005; 94640; 94664; 94760; 96361; 96365; 96367; 96372; 96375; 99285

== ENCOUNTER 2018-12-02 01:06 | Emergency (ER) | payer OTHER ==
[~2018-12-02] VITALS: Ht 170.2 cm; Wt 63.5 kg
[~2018-12-02 01:06] MED LIST changes: +LATUDA20 MG PO
[2018-12-02 01:18] VITALS: BP 124/77
[2018-12-02 01:38] LABS: APPEARANCE,URINE CLEAR; BILIRUBIN, URINE NEGATIVE (NEGATIVE); COLOR,URINE PALE YELLOW; GLUCOSE, URINE (UA) NEGATIVE (NEGATIVE); KETONES,URINE NEGATIVE (NEGATIVE); LEUKOCYTE ESTERASE ,URINE 1+ (NEGATIVE); NITRITE,URINE NEGATIVE (NEGATIVE); PH,URINE 7 (4.5-8.0); PROTEIN,URINE NEGATIVE (NEGATIVE); UROBILINOGEN,URINE NORMAL MG/DL (0.0-1.0)
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
[2018-12-02] MEDS ORDERED: TYLENOL325 MG ORAL (03:28)
[2018-12-02] MEDS ORDERED: ALBUTEROL SULF8.5 GM INH (03:28)
[2018-12-02] MEDS ORDERED: LATUDA20 MG PO (03:28)
[2018-12-02 06:05] VITALS: BP 121/75
== END 2018-12-02 06:05 | disposition home or self-care (01) ==
LOC: EDBD 01:06 → EMR 01:15
DX: G89.4 Chronic pain syndrome (principal); J44.9 Chronic obstructive pulmonary disease, unspecified; F20.9 Schizophrenia, unspecified; M54.2 Cervicalgia; M54.5 Low back pain; M54.9 Dorsalgia, unspecified; Z88.6 Allergy status to analgesic agent; F17.200 Nicotine dependence, unspecified, uncomplicated; F32.9 Major depressive disorder, single episode, unspecified; R07.9 Chest pain, unspecified; R05 Cough; M62.838 Other muscle spasm
CPT/HCPCS: 80307; 81003; 99283

== ENCOUNTER 2019-05-23 21:56 | Emergency (ER) | payer OTHER ==
[~2019-05-23] VITALS: Ht 167.6 cm; Wt 59.0 kg
[2019-05-23 21:56] VITALS: BP 139/87
[~2019-05-23 21:56] MED LIST changes: +ALBUTEROL SULF8.5 GM INH; +TYLENOL325 MG ORAL
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
[2019-05-23] MEDS ORDERED: Tetracaine 0.5% Opth 4ml Soln RIGHT EYE ONE (22:15)
[2019-05-23] MEDS ORDERED: Tetracaine 0.5% Opth 4ml Soln LEFT EYE ONE (22:15)
--- NOTE | 2019-05-23 22:16 | NUR ---
ED Nurse Note: patient refuses to be cooperative with visual acuity. patient is refusing, Dr. Sánchez notified.
[2019-05-23] MEDS ORDERED: ALBUTEROL SULF8.5 GM INH (22:17)
--- NOTE | 2019-05-23 22:18 | NUR ---
ED Nurse Note: visual acuity done. Dr. Antonio verbally discontinued the order for tetracaine, as patient reports her eye pain is better now.
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
[2019-05-23 22:27] VITALS: BP 139/87
--- NOTE | 2019-05-23 22:27 | NUR ---
ER DISCHARGE NOTE: Patient is cleared to be discharged per ERMD DR LYNCH, pt is aox4, on room air, with stable vital signs. pt was given dc instructions/mcc clearance, pt was able to verbalize understanding, pt id band removed without complications. pt is able to ambulate with steady gait. pt took all belongings.
== END 2019-05-23 22:29 | disposition home or self-care (01) ==
LOC: EDBD 21:56 → EMR 22:12
DX: F10.129 Alcohol abuse with intoxication, unspecified (principal); J44.9 Chronic obstructive pulmonary disease, unspecified; Z88.8 Allergy status to other drugs, medicaments and biological substances
CPT/HCPCS: 99282